=== PATIENT | female | born 1990 | race Caucasian/White ===

== ENCOUNTER 2019-04-09 03:02 | Emergency (ER) | payer OTHER ==
[~2019-04-09] VITALS: Ht 154.9 cm; Wt 58.1 kg
[2019-04-09 03:02] VITALS: BP 142/88
--- NOTE | 2019-04-09 03:02 | NUR ---
Patient BIB [facility] for pre-booking medical screening exam, transferred to chair E. RN evaluating patient.
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
--- NOTE | 2019-04-09 03:05 | NUR ---
Dr. Samaniego evaluating patient.
[2019-04-09] MEDS ORDERED: IBUPROFEN 800 MG TAB PO ONE (03:10)
[2019-04-09 03:17] VITALS: BP 142/88
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
== END 2019-04-09 03:17 ==
LOC: MED 03:02
DX: S20.219A Contusion of unspecified front wall of thorax, initial encounter (principal); F10.129 Alcohol abuse with intoxication, unspecified; Z02.89 Encounter for other administrative examinations; V89.2XXA Person injured in unspecified motor-vehicle accident, traffic, initial encounter; Y93.89 Activity, other specified; Y92.89 Other specified places as the place of occurrence of the external cause; Y99.8 Other external cause status
CPT/HCPCS: 99283